=== PATIENT | female | born 1940 | race Caucasian/White ===

== ENCOUNTER 2017-04-23 16:29 | Emergency (ER) | payer OTHER, BC ==
[~2017-04-23] VITALS: Ht 157.5 cm; Wt 59.0 kg
--- NOTE | ~2017-04-23 | EKG ---
[address] [address] ELECTROCARDIOGRAM REPORT Name: YUNIORAIH JOSE ANTONIO Room #: [facility] [id number] Admission: 04/23/17 Attend Phys: Discharge: 04/23/17 Date of : 44 Report #: [id number] THIS REPORT FOR: //name// [facility] ED Test Date: 2017-04-23 Test Time: 18:43:02 Pat Name: ALLA MOJICA Department: Room: Gender: F [employer]: : 1940 Requested By: Marge Devi Order Number: [id number] MD: Hugh Pedersen Measurements Intervals [place] Rate: 74 P: 53 NH: 169 QRS: 26 QRSD: 101 T: 36 QT: 426 QTc: 473 Interpretive Statements Sinus rhythm Low voltage, precordial leads Compared to ECG 03/08/2014 21:14:22 Low QRS voltage now present Electronically Signed On 04-27-2017 21:55:02 CDT by Hugh Pedersen [email or web address] <ELECTRONICALLY SIGNED> By: Hugh Pedersen MD 04/27/17 [id number] Hugh Pedersen MD /LIANA
[~2017-04-23 16:29] MED LIST: ALLEGRA ALLERG180 MG PO; ALLEGRA180 MG PO; B-12 DOTS500 MCG PO; COLACE100 MG PO; DARVOCET-N 1001 EAC1 PO; FENTANYL PA25 MCG/HR TP; FOSAMAX 70 MG T70 M1 PO; FUROSEMIDE OR; GABAPENTIN 100100 MG PO; GABAPENTIN OR; HYDRALAZINE 2525 M1 PO; LAMICTAL XR200 MG PO; LAMICTAL150 MG PO; LASIX 40 MG TAB40 M2 PO; LEXAPRO20 MG PO; MAXZIDE-25 MG1 EACH PO; MOBIC15 MG; MOBIC7.5 MG PO; NORCO 10-325 T1 EACH PO; ONDANSETRON ODT4 MG SUBLING; POTASSIUM20 OR; RELAFEN500 MG PO; RESTASIS1 EACH OPHTHALMIC; SYNTHROID50 MCG PO; TRAMADOL 50 MG50 MG PO; VISTARIL OR; WOMEN'S DAILY1 EACH PO; XANAX 0.25 MG0.25 MG PO; XANAX 0.5 MG0.5 MG PO; ZOCOR 20 MG TAB20 M1 PO; ZOFRAN ODT4 MG PO
[2017-04-23 18:52] LABS: ABSOLUTE NEUTROPHILS 5.6 thou/uL (1.4-8.2); BASOPHILS 0.7 % (0.0-2.0); EOSINOPHILS 0.2 % (0.0-3.0); HEMATOCRIT 43.8 % (37.0-47.0); HEMOGLOBIN 14.7 gm/dL (12.0-15.0); LYMPHOCYTES 20.7 % (24.0-44.0); MANUAL DIFF NO; MCHC 33.6 g/dL (28.0-37.0); MCV 89.3 fL (80.0-100.0); MONOCYTES 6.1 % (1.0-8.0); PLATELET COUNT 304 thou/uL (150-400); POLYS 72.3 % (36.0-66.0); RBC 4.91 mil/uL (4.20-5.00); RDW 13.4 % (10.5-14.5); WBC 7.8 thou/uL (4.0-11.0)
[2017-04-23] MEDS ORDERED: NAMENDA 10 MG T10 MG PO (18:52)
[2017-04-23] MEDS ORDERED: LAMOTRIGINE150 MG PO (18:52)
[2017-04-23 19:03] LABS: ANION GAP 10 mmol/L (7-16); BUN 15 mg/dL (7-18); CALCIUM 10.4 mg/dL (8.5-10.1); CHLORIDE 102 mmol/L (98-107); CO2 28 mmol/L (21-32); CREATININE 1.3 mg/dL (0.6-1.0); GLUCOSE 100 mg/dL (74-106); SODIUM 140 mmol/L (136-145)
[2017-04-23 19:10] LABS: TROPONIN-I < 0.04 ng/mL (<0.04-0.07)
[2017-04-23 20:39] VITALS: BP 131/76
== END 2017-04-23 20:41 | disposition home or self-care (01) ==
LOC: ER 16:29
PROVIDERS: Emergency Medicine
DX: R06.00 Dyspnea, unspecified (principal); F41.9 Anxiety disorder, unspecified; G43.909 Migraine, unspecified, not intractable, without status migrainosus; E03.9 Hypothyroidism, unspecified; E78.5 Hyperlipidemia, unspecified; F32.9 Major depressive disorder, single episode, unspecified; Z88.2 Allergy status to sulfonamides

== ENCOUNTER → 2017-09-30 | Outpatient (CLI) | payer OTHER, BC ==
[~2017-09-30] MED LIST changes: +LAMOTRIGINE150 MG PO; +NAMENDA 10 MG T10 MG PO
== END ==
LOC: ULTRA 10:01
DX: K76.89 Other specified diseases of liver (principal); R13.10 Dysphagia, unspecified; R11.0 Nausea

== ENCOUNTER → 2017-12-23 | Outpatient (CLI) | payer OTHER, BC | LOC: NUC 07:40 | DX: K30 Functional dyspepsia (principal) ==